=== PATIENT | female | born 1965 | race African-American/Black ===

== ENCOUNTER 2017-01-31 13:42 | Observation (INO) | payer MEDICAID ==
[~2017-01-31] VITALS: Ht 170.2 cm; Wt 98.9 kg
[2017-01-31 14:04] LABS: Urine RBC None Seen /hpf (0 - 4)
[2017-01-31 14:24] LABS: DEFINITIVE VIEW TRANSMISSION; Hematocrit 34.1 % (36.0-46.0); Hemoglobin 10.9 g/dL (12.2-16.2); Mean Corpuscular Hemoglobin 23.5 pg (28.0-32.0); Mean Corpuscular Volume 73.4 fL (80.0-100.0); Mean Platelet Volume 11.2 fL (7.4-10.4); Platelet Count (auto) 215 10^3/uL (140-450); Red Cell Distribution Width 15.5 % (11.6-16.0); SUSPECT VIEW TRANSMISSION; White Blood Cell 3.6 10^3/uL (4.4-10.8)
[2017-01-31 14:45] LABS: Urine Bilirubin Negative (Negative); Urine Blood Negative /uL (Negative); Urine Color Yellow (Yellow); Urine Ketone Negative (Negative); Urine Nitrite Negative (Negative); Urine Squamous Epithelial Cell FEW /hpf (<5)
[2017-01-31 14:49] LABS: Urine Glucose 4+ mg/dL (Normal)
[2017-01-31 14:52] LABS: Albumin 3.4 g/dL (3.4-5.0); BUN/Creatinine Ratio 9.4; Bilirubin, Total 0.4 mg/dL (0.2-1.0); Potassium 4.1 mmol/L (3.5-5.1)
[2017-01-31 15:02] LABS: Metamyelocytes % 0; Myelocytes % 0; Promyelocytes % 0; Reactive Lymphocytes 0
[2017-01-31 17:53] LABS: Platelet Estimate Adequate
[2017-01-31 17:54] LABS: Anisocytosis Slight; Hypochromia Moderate; Stomatocytes Few
[2017-01-31 17:55] LABS: Large Platelets FEW
[2017-01-31] MEDS ORDERED: SODIUM CHLORIDE 0.9% 1,000 ML IVB ONE (21:18)
[2017-01-31] MEDS ORDERED: InsuLIN REG 1unit/0.01ml Soln (100units/ml) SC ONE ×2 (21:30→22:45)
[2017-01-31] MEDS ORDERED: LIDOCAINE 1% HCL (LOCAL ANESTH.) INJ 20ML MDV IN ONE (22:45)
[2017-01-31] MEDS ORDERED: cefTRIAXone SOD 1,000 MG VL IM ONE (22:45)
[2017-01-31 22:50] VITALS: BP 164/86
== END 2017-01-31 23:03 | disposition home or self-care (01) | DRG 144 ==
LOC: ER 13:42 → OVERFLOW 21:19 → ER 23:03
PROVIDERS: ADMIT Family Medicine; ATTEND Family Medicine
DX: J20.9 Acute bronchitis, unspecified (principal); E11.65 Type 2 diabetes mellitus with hyperglycemia; I10 Essential (primary) hypertension; D50.9 Iron deficiency anemia, unspecified; D53.9 Nutritional anemia, unspecified; Z82.49 Family history of ischemic heart disease and other diseases of the circulatory system; Z83.3 Family history of diabetes mellitus
CPT/HCPCS: 36415; 71010; 80053; 81001; 82150; 82962; 83690; 83735; 85007; 85027; 93005; 94761; 96372; 99285; G0378; J0696; J1815; J2001

== ENCOUNTER 2018-02-03 09:43 | Emergency (ER) | payer MEDICAID, OTHER ==
[~2018-02-03] VITALS: Ht 170.2 cm; Wt 99.8 kg
[2018-02-03 10:17] VITALS: BP 143/75
[2018-02-03 11:11] LABS: Basophils # (auto) 0 uL; Eosinophils # (auto) 0.2 uL; Eosinophils % (auto) 2.7 % (0.0-7.0); Lymphocytes # (auto) 1.7 uL; Monocytes # (auto) 0.5 uL; White Blood Cell 5.6 10^3/uL (4.4-10.8)
[2018-02-03 11:12] LABS: Basophils % (auto) 0.3 % (0.0-2.0); Hematocrit 34.6 % (36.0-46.0); Hemoglobin 11.4 g/dL (12.2-16.2); Lymphocytes % (auto) 30.5 % (10.0-50.0); Mean Corpuscular Hemoglobin 26.3 pg (28.0-32.0); Mean Corpuscular Hgb Conc. 33.1 g/dL (32.0-36.0); Mean Corpuscular Volume 79.5 fL (80.0-100.0); Monocytes % (auto) 8.5 % (0.0-12.0); Neutrophils # (auto) 3.3 uL; Nucleated Red Blood Cells % 0.1 %; Platelet Count (auto) 266 10^3/uL (140-450); Red Blood Cells 4.35 10^6/uL (4.0-5.20); Red Cell Distribution Width 13.9 % (11.8-14.3)
[2018-02-03 11:33] LABS: Alanine Aminotransferase 26 U/L (13-56); Albumin 3.7 g/dL (3.4-5.0); Alkaline Phosphatase 122 U/L (45-117); Anion Gap 8 (5-15); Aspartate Aminotransferase 14 U/L (15-37); BUN/Creatinine Ratio 17.6; Bilirubin, Total 0.4 mg/dL (0.2-1.0); Blood Urea Nitrogen 21 mg/dL (7-18); Calcium 8.9 mg/dL (8.5-10.1); Carbon Dioxide 26 mmol/L (21-32); Chloride 104 mmol/L (98-107); GFR African American 61 mL/min; GFR Non-African American 51 mL/min; Glucose 298 mg/dL (74-106); Magnesium 2.1 mg/dL (1.6-2.6); Potassium 4.4 mmol/L (3.5-5.1); Sodium 138 mmol/L (136-145); Total Protein 7.7 g/dL (6.4-8.2)
== END 2018-02-03 13:05 | disposition left against medical advice (07) ==
LOC: ER 09:43
DX: R07.89 Other chest pain (principal); M54.2 Cervicalgia; Z53.21 Procedure and treatment not carried out due to patient leaving prior to being seen by health care provider
CPT/HCPCS: 36415; 80053; 83735; 84484; 85025; 93005

== ENCOUNTER 2019-01-21 12:41 | Emergency (ER) | payer MEDICAID ==
[~2019-01-21] VITALS: Ht 170.2 cm; Wt 99.8 kg
[2019-01-21 13:32] VITALS: BP 189/91
== END 2019-01-21 14:33 | disposition home or self-care (01) ==
LOC: ER 12:48
DX: L03.115 Cellulitis of right lower limb (principal); E11.9 Type 2 diabetes mellitus without complications; I10 Essential (primary) hypertension
CPT/HCPCS: 73630

== ENCOUNTER 2019-11-08 20:07 | Emergency (ER) | payer MEDICAID ==
[~2019-11-08] VITALS: Ht 170.2 cm; Wt 99.8 kg
[2019-11-08 21:24] LABS: Urine Bacteria NONE SEEN /hpf (None Seen); Urine Blood Negative /uL (Negative); Urine Specific Gravity 1.015 (1.001-1.035); Urine WBC <1 /hpf (0 - 5)
[2019-11-08 22:50] LABS: Basophils # (auto) 0 uL; Eosinophils # (auto) 0.2 uL; Hemoglobin 12.7 g/dL (12.2-16.2)
[2019-11-08 22:52] LABS: Basophils % (auto) 0.4 % (0.0-2.0); Hematocrit 37.8 % (36.0-46.0); Lymphocytes # (auto) 2.3 uL; Lymphocytes % (auto) 27.9 % (10.0-50.0); Mean Corpuscular Hemoglobin 26.2 pg (28.0-32.0); Mean Corpuscular Hgb Conc. 33.6 g/dL (32.0-36.0); Mean Corpuscular Volume 77.9 fL (80.0-100.0); Monocytes # (auto) 0.7 uL; Monocytes % (auto) 8.6 % (0.0-12.0); Neutrophils % (auto) 61.1 % (37.0-80.0); Platelet Count (auto) 289 10^3/uL (140-450); Red Blood Cells 4.86 10^6/uL (4.0-5.20); Red Cell Distribution Width 13.7 % (11.8-14.3); White Blood Cell 8.2 10^3/uL (4.4-10.8)
[2019-11-08 23:06] LABS: Albumin 3.3 g/dL (3.4-5.0); Anion Gap 6 (5-15); Blood Urea Nitrogen 18 mg/dL (7-18); Calcium 8.7 mg/dL (8.5-10.1); Carbon Dioxide 26 mmol/L (21-32); Chloride 104 mmol/L (98-107); Glucose 345 mg/dL (74-106); Sodium 136 mmol/L (136-145)
[2019-11-08 23:11] LABS: Alanine Aminotransferase 31 U/L (13-56); Alkaline Phosphatase 191 U/L (45-117); Aspartate Aminotransferase 13 U/L (15-37); BUN/Creatinine Ratio 19.8; Bilirubin, Total 0.4 mg/dL (0.2-1.0); GFR African American 83 mL/min; GFR Non-African American 68 mL/min; Total Protein 7.7 g/dL (6.4-8.2)
[2019-11-09] MEDS ORDERED: amLODIPine BESYLATE 5 MG TAB PO ONE (01:00)
[2019-11-09 01:52] VITALS: BP 177/82
== END 2019-11-09 01:52 | disposition home or self-care (01) ==
LOC: ER 20:07
DX: R07.89 Other chest pain (principal); J06.9 Acute upper respiratory infection, unspecified; E11.9 Type 2 diabetes mellitus without complications; I10 Essential (primary) hypertension
CPT/HCPCS: 36415; 71046; 80053; 81001; 84484; 85025; 93005

== ENCOUNTER 2020-07-29 15:39 | Emergency (ER) | payer MEDICAID ==
[~2020-07-29] VITALS: Ht 170.2 cm; Wt 97.1 kg
[2020-07-29] MEDS ORDERED: ASPirin 81 mg TAB PO ONE (16:00)
[2020-07-29 16:53] LABS: Anion Gap 7 (5-15); Blood Urea Nitrogen 16 mg/dL (7-18); Calcium 8.6 mg/dL (8.5-10.1); Carbon Dioxide 27 mmol/L (21-32); Chloride 102 mmol/L (98-107); Glucose 349 mg/dL (74-106); Potassium 4.1 mmol/L (3.5-5.1); Sodium 136 mmol/L (136-145)
[2020-07-29 16:54] LABS: Basophils # (auto) 0 10 ^3/uL (0-0.2); Basophils % (auto) 0.2 % (0.0-2.0); Eosinophils # (auto) 0.3 10 ^3/uL (0-0.8); Eosinophils % (auto) 2.8 % (0.0-7.0); Hematocrit 33.4 % (36.0-46.0); Lymphocytes # (auto) 2.1 10 ^3/uL (0.4-5.4); Lymphocytes % (auto) 23.3 % (10.0-50.0); Mean Corpuscular Volume 78.7 fL (80.0-100.0); Monocytes # (auto) 0.9 10 ^3/uL (0-1.3); Monocytes % (auto) 10.2 % (0.0-12.0); Neutrophils # (auto) 5.8 10 ^3/uL (1.6-8.6); Neutrophils % (auto) 63.5 % (37.0-80.0); Platelet Count (auto) 300 10^3/uL (140-450); Red Blood Cells 4.25 10^6/uL (4.0-5.20); Red Cell Distribution Width 13.5 % (11.8-14.3); White Blood Cell 9.1 10^3/uL (4.4-10.8)
[2020-07-29 16:58] LABS: Alanine Aminotransferase 24 U/L (13-56); Alkaline Phosphatase 178 U/L (45-117); Aspartate Aminotransferase 15 U/L (15-37); BUN/Creatinine Ratio 12.7; Bilirubin, Total 0.3 mg/dL (0.2-1.0); GFR African American 57 mL/min; GFR Non-African American 47 mL/min; Total Protein 7.5 g/dL (6.4-8.2)
[2020-07-29 18:17] VITALS: BP 174/75
== END 2020-07-29 18:19 | disposition home or self-care (01) ==
LOC: ER 15:39 → EDBD 15:39 → ER 18:19
DX: R07.89 Other chest pain (principal); E11.9 Type 2 diabetes mellitus without complications; E78.5 Hyperlipidemia, unspecified; I10 Essential (primary) hypertension
CPT/HCPCS: 36415; 71045; 80053; 84484; 85025; 85379; 93005

== ENCOUNTER 2021-01-30 11:41 | Emergency (ER) | payer MEDICAID ==
[~2021-01-30] VITALS: Ht 170.2 cm; Wt 97.5 kg
[2021-01-30 12:44] LABS: Basophils # (auto) 0 10 ^3/uL (0-0.2); Eosinophils # (auto) 0.1 10 ^3/uL (0-0.8); Lymphocytes # (auto) 1.9 10 ^3/uL (0.4-5.4)
[2021-01-30 12:46] LABS: Basophils % (auto) 0.4 % (0.0-2.0); Hematocrit 33.3 % (36.0-46.0); Hemoglobin 11.3 g/dL (12.2-16.2); Mean Corpuscular Hemoglobin 26.3 pg (28.0-32.0); Mean Corpuscular Hgb Conc. 33.9 g/dL (32.0-36.0); Mean Corpuscular Volume 77.5 fL (80.0-100.0); Monocytes # (auto) 0.6 10 ^3/uL (0-1.3); Monocytes % (auto) 8.9 % (0.0-12.0); Neutrophils # (auto) 3.9 10 ^3/uL (1.6-8.6); Neutrophils % (auto) 59.7 % (37.0-80.0); Platelet Count (auto) 272 10^3/uL (140-450); Red Blood Cells 4.29 10^6/uL (4.0-5.20); Red Cell Distribution Width 13.7 % (11.8-14.3); White Blood Cell 6.5 10^3/uL (4.4-10.8)
[2021-01-30 13:01] LABS: Albumin 2.9 g/dL (3.4-5.0); Anion Gap 7 (5-15); Blood Urea Nitrogen 14 mg/dL (7-18); Calcium 8.4 mg/dL (8.5-10.1); Carbon Dioxide 25 mmol/L (21-32); Chloride 107 mmol/L (98-107); Glucose 273 mg/dL (74-106); Potassium 4.2 mmol/L (3.5-5.1); Sodium 139 mmol/L (136-145)
[2021-01-30 13:02] LABS: INR 0.97 (0.9-1.15); Partial Thromboplastin Time 27.1 sec (23.0-31.2)
[2021-01-30 13:06] LABS: Alanine Aminotransferase 23 U/L (13-56); Alkaline Phosphatase 135 U/L (45-117); Aspartate Aminotransferase 16 U/L (15-37); BUN/Creatinine Ratio 15.6; Bilirubin, Total 0.4 mg/dL (0.2-1.0); GFR African American 84 mL/min; GFR Non-African American 69 mL/min; Total Protein 6.9 g/dL (6.4-8.2)
[2021-01-30] MEDS ORDERED: ASPirin 81 mg TAB PO ONE ×2 (13:15→13:30)
[2021-01-30 16:41] VITALS: BP 144/68
== END 2021-01-30 17:27 | disposition home or self-care (01) ==
LOC: ER 11:41
DX: R07.89 Other chest pain (principal); D64.9 Anemia, unspecified; E11.9 Type 2 diabetes mellitus without complications; E78.5 Hyperlipidemia, unspecified; I10 Essential (primary) hypertension
CPT/HCPCS: 36415; 71045; 80053; 82962; 83735; 83880; 84443; 84484; 85025; 85379; 85610; 85730; 93005

== ENCOUNTER 2021-07-20 11:58 | Emergency (ER) | payer MEDICAID ==
[~2021-07-20] VITALS: Ht 170.2 cm; Wt 99.8 kg
[2021-07-20 15:08] LABS: Urine Bacteria NONE SEEN /hpf (None Seen); Urine Blood Negative /uL (Negative); Urine Hyaline Cast FEW /lpf (0 - 2); Urine Specific Gravity 1.015 (1.001-1.035); Urine WBC 4 /hpf (0 - 5)
[2021-07-20 15:09] LABS: Basophils # (auto) 0 10 ^3/uL (0-0.2); Eosinophils # (auto) 0.2 10 ^3/uL (0-0.8); Mean Corpuscular Volume 77.5 fL (80.0-100.0); Monocytes # (auto) 0.6 10 ^3/uL (0-1.3); Nucleated Red Blood Cells % 0.1 %
[2021-07-20 15:20] LABS: Basophils % (auto) 0.4 % (0.0-2.0); Eosinophils % (auto) 2.2 % (0.0-7.0); Hematocrit 31.5 % (36.0-46.0); Hemoglobin 10.8 g/dL (12.2-16.2); Lymphocytes # (auto) 2.1 10 ^3/uL (0.4-5.4); Lymphocytes % (auto) 28.7 % (10.0-50.0); Mean Corpuscular Hemoglobin 26.5 pg (28.0-32.0); Mean Corpuscular Hgb Conc. 34.2 g/dL (32.0-36.0); Neutrophils # (auto) 4.5 10 ^3/uL (1.6-8.6); Neutrophils % (auto) 60.7 % (37.0-80.0); Red Blood Cells 4.06 10^6/uL (4.0-5.20); Red Cell Distribution Width 13.6 % (11.8-14.3); White Blood Cell 7.5 10^3/uL (4.4-10.8)
[2021-07-20 15:35] LABS: Albumin 3.1 g/dL (3.4-5.0); Anion Gap 5 (5-15); Blood Urea Nitrogen 20 mg/dL (7-18); Calcium 8.8 mg/dL (8.5-10.1); Carbon Dioxide 27 mmol/L (21-32); Chloride 108 mmol/L (98-107); Glucose 182 mg/dL (74-106); Magnesium 1.9 mg/dL (1.6-2.6); Potassium 4.5 mmol/L (3.5-5.1); Sodium 140 mmol/L (136-145)
[2021-07-20 15:44] LABS: Alanine Aminotransferase 22 U/L (13-56); Alkaline Phosphatase 137 U/L (45-117); Aspartate Aminotransferase 12 U/L (15-37); BUN/Creatinine Ratio 17.7; Bilirubin, Total 0.3 mg/dL (0.2-1.0); GFR African American 64 mL/min; GFR Non-African American 53 mL/min; Total Protein 7.3 g/dL (6.4-8.2)
[2021-07-20 18:00] VITALS: BP 152/78
== END 2021-07-20 18:23 | disposition home or self-care (01) ==
LOC: ER 11:58
DX: D50.9 Iron deficiency anemia, unspecified (principal); E11.9 Type 2 diabetes mellitus without complications; E78.5 Hyperlipidemia, unspecified; I10 Essential (primary) hypertension; Z98.890 Other specified postprocedural states
CPT/HCPCS: 36415; 70450; 71045; 80053; 81001; 83735; 84484; 85025; 93005

== ENCOUNTER 2023-05-13 14:29 | Emergency (ER) | payer MEDICAID ==
[~2023-05-13] VITALS: Ht 170.2 cm; Wt 97.5 kg
[~2023-05-13 14:29] MED LIST: ALBU108A5 IN; LEVO500T31 PO
[2023-05-13 14:38] VITALS: BP 158/78; PULSE 91; RESP 17; O2SAT 98
[2023-05-13] MEDS ORDERED: [UNRECOGNIZED DRUG - CODE] XX (16:10)
[2023-05-13] MEDS ORDERED: CLIN300C70 PO (16:10)
== END 2023-05-13 17:59 | disposition home or self-care (01) ==
LOC: ER 14:29
DX: M79.675 Pain in left toe(s) (principal); I10 Essential (primary) hypertension; E11.9 Type 2 diabetes mellitus without complications; E78.5 Hyperlipidemia, unspecified; Z98.890 Other specified postprocedural states; Z79.899 Other long term (current) drug therapy

== ENCOUNTER 2023-05-21 21:22 | Inpatient (IN) | payer MEDICAID ==
[~2023-05-21] VITALS: Ht 167.6 cm; Wt 103.8 kg
[~2023-05-21 21:22] MED LIST changes: +CLIN300C70 PO; +[UNRECOGNIZED DRUG - CODE] XX
[2023-05-21 22:22] LABS: Basophils # (auto) 0 10 ^3/uL (0-0.2); Basophils % (auto) 0.5 % (0.0-2.0); Eosinophils # (auto) 0.3 10 ^3/uL (0-0.8); Eosinophils % (auto) 3.1 % (0.0-7.0); Hemoglobin 9.4 g/dL (12.2-16.2); Lymphocytes # (auto) 2.1 10 ^3/uL (0.4-5.4); Lymphocytes % (auto) 25.6 % (10.0-50.0); Mean Corpuscular Hemoglobin 25.9 pg (28.0-32.0); Mean Corpuscular Hgb Conc. 32.5 g/dL (32.0-36.0); Mean Corpuscular Volume 79.7 fL (80.0-100.0); Neutrophils # (auto) 4.8 10 ^3/uL (1.6-8.6); Neutrophils % (auto) 58.8 % (37.0-80.0); Nucleated Red Blood Cells % 0.1 %; Red Blood Cells 3.64 10^6/uL (4.0-5.20); Red Cell Distribution Width 13.6 % (11.8-14.3); White Blood Cell 8.1 10^3/uL (4.4-10.8)
[2023-05-21 22:39] LABS: Albumin 2.9 g/dL (3.4-5.0); Calcium 8.2 mg/dL (8.5-10.1); Potassium 4.4 mmol/L (3.5-5.1)
[2023-05-21 22:48] LABS: BUN/Creatinine Ratio 18.6 (10.0-20.0); Bilirubin, Total 0.3 mg/dL (0.2-1.0); CRP High Sensitivity 1.58 mg/dL (< 0.3)
[2023-05-21 23:05] LABS: Erythrocyte Sedimentation Rate 96 mm/hr (0-20)
[2023-05-22] MEDS ORDERED: PIPERACILLIN-TAZOB 3.375GM 100 ML IV ONE (03:15)
[2023-05-22] MEDS ORDERED: LACTATED RINGER'S 1,000 ML IV ONE (03:15)
[2023-05-22] MEDS ORDERED: VANCOMYCIN PER PHARMACY 0 MG IV SCH (04:30)
[2023-05-22] MEDS ORDERED: DEXTROSE (50%) 50ML SYRG IV PRN (04:30)
[2023-05-22] MEDS ORDERED: ACETAMINOPHEN 325 MG TAB PO PRN (04:30)
[2023-05-22] MEDS ORDERED: ONDANSETRON HCL 4 MG/2 ML VIAL IV PRN (04:30)
[2023-05-22] MEDS ORDERED: hydrALAZINE HCL 20 MG/ML VL IV ONE (04:45)
[2023-05-22] MEDS ORDERED: VANCOMYCIN 1GM/250ML 250 ML IV ONE (05:00)
[2023-05-22] MEDS: GABAPENTIN 300 MG CAP PO SCH ×3 (05:47→22:24)
[2023-05-22 06:21] VITALS: PULSE 76; RESP 18; O2SAT 97
[2023-05-22] MEDS: ACCU-CHEK COMFORT CURVE STRIP VI SCH ×4 (06:45→22:07)
[2023-05-22] MEDS: InsuLIN REG 1unit/0.01ml Soln (100units/ml) SC SCH ×4 (06:46→22:07)
[2023-05-22] MEDS ORDERED: cloNIDine HCL 0.1 MG TAB PO ONE (07:30)
[2023-05-22 07:35] VITALS: PULSE 76; RESP 18; O2SAT 97
[2023-05-22] MEDS: amLODIPine BESYLATE 5 MG TAB PO SCH (09:49)
[2023-05-22] MEDS ORDERED: LOSARTAN POTASSIUM 50 MG TAB PO SCH (10:00)
[2023-05-22] MEDS ORDERED: FUROSEMIDE 40 MG TAB PO SCH (10:00)
[2023-05-22] MEDS: PANTOPRAZOLE 40 MG TAB PO SCH (10:13)
[2023-05-22] MEDS: SODIUM CHLORIDE 0.9% 1,000 ML IV SCH (16:48)
[2023-05-22] MEDS: PIPERACILLIN-TAZOB 3.375GM 100 ML IV SCH (17:08)
[2023-05-22] MEDS: CARVEDILOL 3.125 MG TAB PO SCH (22:00)
[2023-05-22] MEDS ORDERED: CEFEPIME 2GM/50ML NS 50 ML IV SCH (22:00)
[2023-05-22] MEDS: ATORVASTATIN 20 MG TAB PO SCH (22:24)
[2023-05-22 22:48] VITALS: BP 149/64; PULSE 74; RESP 18; TEMP 92.9; TEMP 97.9; O2SAT 100
[2023-05-23] VITALS (7 sets, daily range): BP systolic 121–181; BP diastolic 44–59; PULSE 69–112; RESP 16–18; TEMP 98.3–98.7; O2SAT 94–100
[2023-05-23] MEDS: SODIUM CHLORIDE 0.9% 1,000 ML IV SCH ×2 (02:15→11:40)
[2023-05-23] MEDS: PIPERACILLIN-TAZOB 3.375GM 100 ML IV SCH (04:57)
[2023-05-23] MEDS: GABAPENTIN 300 MG CAP PO SCH ×3 (04:58→22:46)
[2023-05-23] MEDS: ACCU-CHEK COMFORT CURVE STRIP VI SCH ×4 (06:36→22:46)
[2023-05-23] MEDS: InsuLIN REG 1unit/0.01ml Soln (100units/ml) SC SCH ×4 (06:47→22:58)
[2023-05-23 06:55] LABS: Basophils # (auto) 0 10 ^3/uL (0-0.2); Basophils % (auto) 0.4 % (0.0-2.0); Eosinophils # (auto) 0.2 10 ^3/uL (0-0.8); Mean Corpuscular Hgb Conc. 32.7 g/dL (32.0-36.0); Monocytes # (auto) 0.7 10 ^3/uL (0-1.3); Red Cell Distribution Width 13.9 % (11.8-14.3); White Blood Cell 6.3 10^3/uL (4.4-10.8)
[2023-05-23 06:58] LABS: Eosinophils % (auto) 3.6 % (0.0-7.0); Hematocrit 30.6 % (36.0-46.0); Lymphocytes # (auto) 1.7 10 ^3/uL (0.4-5.4); Lymphocytes % (auto) 26.9 % (10.0-50.0); Mean Corpuscular Hemoglobin 26.1 pg (28.0-32.0); Mean Corpuscular Volume 79.9 fL (80.0-100.0); Monocytes % (auto) 11.3 % (0.0-12.0); Neutrophils # (auto) 3.6 10 ^3/uL (1.6-8.6); Neutrophils % (auto) 57.8 % (37.0-80.0); Red Blood Cells 3.83 10^6/uL (4.0-5.20)
[2023-05-23] MEDS ORDERED: INSULIN LANTUS (GLARGINE) 1 /0.01ml (100units/ml) SC SCH (07:00)
[2023-05-23 07:40] LABS: Calcium 8.4 mg/dL (8.5-10.1); Potassium 4.5 mmol/L (3.5-5.1)
[2023-05-23 07:42] LABS: BUN/Creatinine Ratio 17.6 (10.0-20.0)
[2023-05-23] MEDS: CARVEDILOL 3.125 MG TAB PO SCH ×2 (09:04→22:46)
[2023-05-23] MEDS: amLODIPine BESYLATE 5 MG TAB PO SCH (09:05)
[2023-05-23] MEDS: PANTOPRAZOLE 40 MG TAB PO SCH (09:05)
[2023-05-23] MEDS ORDERED: VANCOMYCIN PER PHARMACY 0 MG IV SCH (12:00)
[2023-05-23] MEDS ORDERED: VANCOMYCIN 1GM/250ML 250 ML IV ONE (13:00)
[2023-05-23] MEDS: HYDROcodone-ACET 5/325MG TAB PO PRN ×2 (16:15→22:44)
[2023-05-23] MEDS: hydrALAZINE HCL 20 MG/ML VL IV PRN (16:25)
[2023-05-23] MEDS: CEFEPIME 2GM/50ML NS 50 ML IV SCH (18:43)
[2023-05-23] MEDS: ATORVASTATIN 20 MG TAB PO SCH (22:46)
[2023-05-23] MEDS: INSULIN LANTUS (GLARGINE) 1 /0.01ml (100units/ml) SC SCH (22:56)
[2023-05-24] MEDS: hydrALAZINE HCL 20 MG/ML VL IV PRN (00:58)
[2023-05-24 05:00] VITALS: BP 146/53; PULSE 83; RESP 20; TEMP 98.4; O2SAT 100
[2023-05-24] MEDS: CEFEPIME 2GM/50ML NS 50 ML IV SCH (05:44)
[2023-05-24] MEDS: GABAPENTIN 300 MG CAP PO SCH ×3 (05:46→21:46)
[2023-05-24] MEDS: HYDROcodone-ACET 5/325MG TAB PO PRN ×2 (05:47→21:44)
[2023-05-24] MEDS: ACCU-CHEK COMFORT CURVE STRIP VI SCH ×4 (05:50→21:56)
[2023-05-24] MEDS: InsuLIN REG 1unit/0.01ml Soln (100units/ml) SC SCH ×4 (05:54→22:09)
[2023-05-24 06:35] LABS: Basophils # (auto) 0 10 ^3/uL (0-0.2); Basophils % (auto) 0.3 % (0.0-2.0); Eosinophils # (auto) 0.3 10 ^3/uL (0-0.8); Lymphocytes # (auto) 1.4 10 ^3/uL (0.4-5.4); Monocytes # (auto) 0.7 10 ^3/uL (0-1.3)
[2023-05-24 06:37] LABS: Hematocrit 29.1 % (36.0-46.0); Hemoglobin 9.5 g/dL (12.2-16.2); Lymphocytes % (auto) 20.2 % (10.0-50.0); Mean Corpuscular Hemoglobin 26.2 pg (28.0-32.0); Mean Corpuscular Hgb Conc. 32.7 g/dL (32.0-36.0); Mean Corpuscular Volume 80.2 fL (80.0-100.0); Monocytes % (auto) 9.9 % (0.0-12.0); Neutrophils # (auto) 4.6 10 ^3/uL (1.6-8.6); Neutrophils % (auto) 65.6 % (37.0-80.0); Nucleated Red Blood Cells % 0.1 %; Red Blood Cells 3.63 10^6/uL (4.0-5.20); Red Cell Distribution Width 14.1 % (11.8-14.3)
[2023-05-24 06:58] LABS: Anion Gap 8 (5-15); BUN/Creatinine Ratio 20.1 (10.0-20.0); Blood Urea Nitrogen 35 mg/dL (7-18); Carbon Dioxide 17 mmol/L (21-32); Chloride 114 mmol/L (98-107); GFR African American 39 mL/min; GFR Non-African American 32 mL/min; Glucose 201 mg/dL (74-106); Potassium 5.2 mmol/L (3.5-5.1); Sodium 139 mmol/L (136-145)
[2023-05-24] MEDS ORDERED: SODIUM ZIRCONIUM CYCL 10 GM PAK PO ONE (07:45)
[2023-05-24 08:30] VITALS: PULSE 75; RESP 16; O2SAT 95
[2023-05-24 09:00] VITALS: BP 126/59; PULSE 79; RESP 18; TEMP 98.1; O2SAT 100
[2023-05-24] MEDS: amLODIPine BESYLATE 5 MG TAB PO SCH (10:11)
[2023-05-24] MEDS: PANTOPRAZOLE 40 MG TAB PO SCH (10:11)
[2023-05-24] MEDS: CARVEDILOL 3.125 MG TAB PO SCH ×2 (10:12→21:45)
[2023-05-24] MEDS: INSULIN LANTUS (GLARGINE) 1 /0.01ml (100units/ml) SC SCH ×2 (10:16→22:08)
[2023-05-24] MEDS ORDERED: AML5T PO (10:43)
[2023-05-24] MEDS ORDERED: CLIN300C70 PO (10:43)
[2023-05-24] MEDS ORDERED: [UNRECOGNIZED DRUG - CODE] XX (10:43)
[2023-05-24] MEDS ORDERED: INSLANTI SC (10:43)
[2023-05-24] MEDS ORDERED: CAR3125T PO (10:43)
[2023-05-24] MEDS ORDERED: DAKINS HALF STR 0.25% (NaHypochlorite) 473 ML TOPICAL SOL TOP SCH (11:15)
[2023-05-24] MEDS ORDERED: VANCOMYCIN 1GM/250ML 250 ML IV SCH (16:00)
[2023-05-24 17:00] VITALS: BP 121/54; PULSE 67; RESP 18; TEMP 98.1; O2SAT 100
[2023-05-24 20:00] VITALS: BP 125/59; PULSE 77; RESP 18; TEMP 97.9; O2SAT 100
[2023-05-24] MEDS: ATORVASTATIN 20 MG TAB PO SCH (21:43)
[2023-05-25] MEDS ORDERED: CEFEPIME 1GM/ 50ML 50 ML IV SCH (10:00)
== END 2023-05-24 22:19 | disposition home or self-care (01) | DRG 383 ==
LOC: ER 21:28 → OVERFLOW 05-22 04:32 → CENTRAL 05-22 22:24
PROVIDERS: ADMIT Internal Medicine; ATTEND Student in an Organized Health Care Education/Training Program
DX: L03.032 Cellulitis of left toe (principal); N17.0 Acute kidney failure with tubular necrosis; E44.0 Moderate protein-calorie malnutrition; L97.529 Non-pressure chronic ulcer of other part of left foot with unspecified severity; M86.9 Osteomyelitis, unspecified; E11.22 Type 2 diabetes mellitus with diabetic chronic kidney disease; D64.9 Anemia, unspecified; E11.621 Type 2 diabetes mellitus with foot ulcer; E11.65 Type 2 diabetes mellitus with hyperglycemia; I12.9 Hypertensive chronic kidney disease with stage 1 through stage 4 chronic kidney disease, or unspecified chronic kidney disease; E78.5 Hyperlipidemia, unspecified; E66.01 Morbid (severe) obesity due to excess calories; R79.82 Elevated C-reactive protein (CRP); S91.102A Unspecified open wound of left great toe without damage to nail, initial encounter; X58.XXXA Exposure to other specified factors, initial encounter; R70.0 Elevated erythrocyte sedimentation rate; N18.32 Chronic kidney disease, stage 3b; Z68.36 Body mass index [BMI] 36.0-36.9, adult; Z82.49 Family history of ischemic heart disease and other diseases of the circulatory system; Z83.3 Family history of diabetes mellitus; Z71.3 Dietary counseling and surveillance; Y93.89 Activity, other specified; Y92.89 Other specified places as the place of occurrence of the external cause; Y99.8 Other external cause status; E11.69 Type 2 diabetes mellitus with other specified complication
CPT/HCPCS: 36415; 73700; 80048; 80053; 80202; 82565; 82962; 85025; 85652; 86141; 87205; G0378; J0692; J1815; J2543

== ENCOUNTER 2023-11-22 17:43 | Emergency (ER) | payer MEDICAID ==
[~2023-11-22] VITALS: Ht 170.2 cm; Wt 99.5 kg
[~2023-11-22 17:43] MED LIST changes: +AML5T PO; +CAR3125T PO; +INSLANTI SC; -LEVO500T31 PO; +[UNRECOGNIZED DRUG - CODE] XX
[2023-11-22 18:43] LABS: Urine Bacteria FEW /hpf (None Seen); Urine Blood 3+ /uL (Negative); Urine Clarity CLOUDY (Clear); Urine Color Red (Yellow); Urine Protein, UAD 2+ (Negative); Urine Urobilinogen Normal (Negative); Urine WBC 434 /hpf (0 - 5)
[2023-11-22 18:48] LABS: Urine Specific Gravity 1.018 (1.001-1.035)
[2023-11-22 19:16] LABS: Basophils # (auto) 0 10 ^3/uL (0-0.2); Basophils % (auto) 0.4 % (0.0-2.0); Eosinophils # (auto) 0.2 10 ^3/uL (0-0.8); Eosinophils % (auto) 1.9 % (0.0-7.0); Hematocrit 34.1 % (36.0-46.0); Hemoglobin 10.9 g/dL (12.2-16.2); Lymphocytes # (auto) 1.9 10 ^3/uL (0.4-5.4); Lymphocytes % (auto) 21.1 % (10.0-50.0); Mean Corpuscular Hemoglobin 25.7 pg (28.0-32.0); Mean Corpuscular Hgb Conc. 31.8 g/dL (32.0-36.0); Mean Corpuscular Volume 80.7 fL (80.0-100.0); Monocytes % (auto) 11.8 % (0.0-12.0); Neutrophils # (auto) 5.7 10 ^3/uL (1.6-8.6); Neutrophils % (auto) 64.8 % (37.0-80.0); Nucleated Red Blood Cells % 0.1 %; Red Blood Cells 4.23 10^6/uL (4.0-5.20); Red Cell Distribution Width 13.8 % (11.8-14.3); White Blood Cell 8.9 10^3/uL (4.4-10.8)
[2023-11-22 19:30] LABS: Chloride 108 mmol/L (98-107); Potassium 4.7 mmol/L (3.5-5.1); Sodium 138 mmol/L (136-145)
[2023-11-22 19:31] LABS: Anion Gap 6 (5-15); Calcium 8.8 mg/dL (8.7-10.4); Carbon Dioxide 24 mmol/L (20-30)
[2023-11-22 19:36] LABS: BUN/Creatinine Ratio 13.3 (10.0-20.0); Blood Urea Nitrogen 24 mg/dL (9-23); Glucose 162 mg/dL (74-106)
[2023-11-22 19:37] LABS: INR 0.98 (0.9-1.15); Prothrombin Time 10.3 sec (9.3-11.8)
[2023-11-22] MEDS ORDERED: CEPH500C PO (19:41)
[2023-11-22] MEDS: cefTRIAXone W LIDOCAINE 1 GM IM IM ONE (21:13)
[2023-11-22 21:14] VITALS: BP 185/76; PULSE 78; RESP 16; O2SAT 95
[2023-11-22] MEDS: cefTRIAXone SOD 1,000 MG VL ONE (21:14)
[2023-11-22] MEDS: LIDOCAINE 2%HCL (LOCAL ANESTH.) INJ 10ml MDV ONE (21:14)
== END 2023-11-22 21:18 | disposition home or self-care (01) ==
LOC: ER 17:43
DX: R31.9 Hematuria, unspecified (principal); I12.9 Hypertensive chronic kidney disease with stage 1 through stage 4 chronic kidney disease, or unspecified chronic kidney disease; E11.22 Type 2 diabetes mellitus with diabetic chronic kidney disease; N18.9 Chronic kidney disease, unspecified; E78.5 Hyperlipidemia, unspecified; Z79.4 Long term (current) use of insulin; Z79.2 Long term (current) use of antibiotics; Z79.899 Other long term (current) drug therapy
CPT/HCPCS: 36415; 80048; 81001; 85025; 85610; 87086; 87088; 87186; 96372; 99283; J0696; J2001